=== PATIENT | male | born 1955 | race Caucasian/White ===

== ENCOUNTER 2022-04-03 11:02 | Day surgery (SDC) | payer MEDICARE, OTHER ==
--- NOTE | 2022-04-03 09:21 | ANESTHESIA ---
Pre-Anesthesia VS, & Labs - Diagnosis screening - Procedure hx colon polyps Height: 6 ft 1 in - NPO >8 hours - Lab Results Lab results reviewed: No Home Medications and Allergies Home Medications: Ambulatory Orders Zolpidem [Ambien] 5 mg PO HS PRN 04/02/22 Atorvastatin [Lipitor] 40 mg PO DAILY 07/15/14 Omeprazole [PriLOSEC] 40 mg PO BID 07/15/14 metFORMIN [Glucophage] 500 mg PO BID 07/15/14 Zolpidem [Ambien] 5 mg PO HS PRN 04/02/22 Allergies/Adverse Reactions: Allergies Allergy/AdvReac Type Severity Reaction Status Date / Time bacitracin Allergy Rash Verified 07/15/14 08:29 [From Neosporin ([id number])] bacitracin zinc * Allergy Rash Verified 07/15/14 08:29 [From Neosporin ([id number])] neomycin sulfate * Allergy Rash Verified 07/15/14 08:29 [From Neosporin ([id number])] polymyxin B Allergy Rash Verified 07/15/14 08:29 [From Neosporin ([id number])] Anes History & Medical History - Anesthetic History Anesthesia Complications: reports: No previous complications Family history of Anesthesia Complications: Denies Family history of Malignant Hyperthermia: Denies - Medical History Cardiovascular: reports: High cholesterol Pulmonary: reports: Sleep apnea, CPAP use Gastrointestinal: reports: GERD Urinary: reports: Benign prostate hypertrophy, Kidney stones Musculoskeletal: reports: Osteoarthritis Endocrine/Autoimmune: reports: Type 2 diabetes Skin: reports: Other Smoking Status: Never smoker - Surgical History Eyes Ears Nose Throat (EENT): reports: Other Exam General: Alert, Oriented x3, Cooperative Mouth Openin Fingerbreadth Neck Mobility: Normal Mallampati classification: II Respiratory: Lungs clear, Normal breath sounds Cardiovascular: Regular rate Plan Anesthesia Type: Total IV Consent for Procedure(s) Verified and Reviewed: Yes Code Status: Attempt Resuscitation ASA classification: 2-Mild systemic disease Is this case an emergency?: No
[2022-04-03] MEDS ORDERED: LACTATED RINGERS 1,000 ML IV ONE (11:08)
[2022-04-03] MEDS ORDERED: MIDAZOLAM 2 MG/2 ML VIAL ONE (11:42)
[2022-04-03] MEDS ORDERED: PROPOFOL 200 MG/20 ML VIAL IVP ONE ×2 (12:00→12:30)
[2022-04-03] MEDS ORDERED: LACTATED RINGERS 600 ML IV ONE (12:36)
[2022-04-03 12:51] VITALS: BP 114/72
--- NOTE | 2022-04-03 14:11 | ANESTHESIA POST OP EVALUATION ---
Anesthesia Post Eval - Post Anesthesia Eval Vitals: Last Vital Signs Temp 36.2 C L 04/03/22 12:45 Pulse 58 L 04/03/22 12:45 Resp 16 04/03/22 12:45 BP 114/72 04/03/22 12:45 Pulse Ox 97 04/03/22 12:45 O2 Flow Rate CV Function Including HR & BP: Stable Pain Control: Satisfactory Nausea & Vomiting: Negative Mental Status: Baseline Respiratory Status: Airway Patent Hydration Status: Satisfactory Anesthesia Complications: None
== END 2022-04-03 11:03 | disposition home or self-care (01) ==
LOC: SDS 11:02
PROVIDERS: ATTEND Surgery
PROC: 0DBH8ZX Excision of Cecum, Via Natural or Artificial Opening Endoscopic, Diagnostic (ICD-10-PCS; principal; 2022-04-03 13:00)
DX: Z12.11 Encounter for screening for malignant neoplasm of colon (principal); D12.0 Benign neoplasm of cecum; E11.9 Type 2 diabetes mellitus without complications; K57.30 Diverticulosis of large intestine without perforation or abscess without bleeding; G47.30 Sleep apnea, unspecified; Z79.84 Long term (current) use of oral hypoglycemic drugs
CPT/HCPCS: 45380; J7120